=== PATIENT | male | born 1975 | race Caucasian/White ===

== ENCOUNTER 2022-11-03 15:45 | Inpatient (IN) | payer OTHER, BC ==
[2022-11-03 16:29] VITALS: BMI 26.6
[2022-11-03] MEDS ORDERED: DEXAMETHASONE SOD PHOSPHATE 4 MG/1 ML VIAL IVPUSH ONE (17:59)
[2022-11-03 19:10] LABS: HEMATOCRIT 41.7 % (35.4-49); HEMOGLOBIN 13.4 GM/dL (11.7-16.9); MCH 30.9 pg (25.7-33.7); MCHC 32.2 g/dl (32.0-35.9); MEAN CELL VOLUME 95.8 fl (80-96); PLATELET COUNT 295 10^3/uL (134-434); RBC 4.36 M/mm3 (4.00-5.60); RDW 13.4 % (11.9-15.9); WHITE BLOOD COUNT 3.7 K/mm3 (4.0-10.0)
[2022-11-03 19:30] LABS: BLOOD UREA NITROGEN 22.9 mg/dL (7-18); CALCIUM 8.5 mg/dL (8.5-10.1)
[2022-11-03 19:36] LABS: BILIRUBIN,TOTAL 0.4 mg/dL (0.2-1); TOT PROT 7.1 g/dl (6.4-8.2)
[2022-11-03] MEDS ORDERED: DEXAMETHASONE SOD PHOSPHATE 4 MG/1 ML VIAL ONE (20:34)
[2022-11-03 21:12] LABS: CALCIUM 8.7 mg/dL (8.5-10.1)
[2022-11-03 21:13] LABS: BLOOD UREA NITROGEN 21.4 mg/dL (7-18)
[2022-11-03 21:18] LABS: BILIRUBIN,TOTAL 0.3 mg/dL (0.2-1); TOT PROT 6.8 g/dl (6.4-8.2)
[2022-11-04] MEDS ORDERED: REMDESIVIR 200 MG in SODIUM CHLORIDE 250 ML IVPB ONE (02:30)
[2022-11-04 07:28] LABS: BASO % 0.9 % (0-2.0); EOS % 2.7 % (0-4.5); HEMATOCRIT 43.2 % (35.4-49); HEMOGLOBIN 14.3 GM/dL (11.7-16.9); LYMPH % 29.1 % (8-40); MCH 31.7 pg (25.7-33.7); MCHC 33.1 g/dl (32.0-35.9); MEAN CELL VOLUME 95.9 fl (80-96); MEAN PLT VOLUME 6.9 fl (7.5-11.1); MONO % 13.6 % (3.8-10.2); NEUT % 53.7 % (42.8-82.8); PLATELET COUNT 308 10^3/uL (134-434); RBC 4.51 M/mm3 (4.00-5.60); RDW 13.3 % (11.9-15.9); WHITE BLOOD COUNT 3.9 K/mm3 (4.0-10.0)
[2022-11-04 07:56] LABS: CALCIUM 8.8 mg/dL (8.5-10.1)
[2022-11-04 07:57] LABS: ALBUMIN 3.2 g/dl (3.4-5.0); BLOOD UREA NITROGEN 21.2 mg/dL (7-18); MAGNESIUM 2.1 mg/dL (1.8-2.4)
[2022-11-04 07:59] LABS: CREATININE 0.9 mg/dL (0.55-1.3); PHOSPHOROUS 4.1 mg/dL (2.5-4.9)
[2022-11-04 08:01] LABS: BILIRUBIN,TOTAL 0.4 mg/dL (0.2-1)
[2022-11-04] MEDS ORDERED: amLODIPine BESYLATE 5 MG TABLET (FP) ONE (08:44)
[2022-11-04] MEDS ORDERED: LOSARTAN POTASSIUM 50 MG TABLET ONE (08:45)
[2022-11-04] MEDS ORDERED: HYDROCHLOROTHIAZIDE 25 MG TABLET (FP) ONE (08:45)
[2022-11-04] MEDS ORDERED: ENOXAPARIN NA (PORCINE) 40 MG/0.4 ML DISP.SYRIN SQ ONE (10:46)
[2022-11-04] MEDS ORDERED: DEXAMETHASONE SOD PHOSPHATE 10 MG/1 ML VIAL ONE (10:46)
[2022-11-04] MEDS: ENOXAPARIN NA (PORCINE) 40 MG/0.4 ML DISP.SYRIN SQ SCH (11:00)
[2022-11-04] MEDS: DEXAMETHASONE SOD PHOSPHATE 10 MG/1 ML VIAL IVPUSH SCH (11:00)
[2022-11-04] MEDS ORDERED: ACETAMINOPHEN 325 MG TABLET (FP) PO PRN (14:25)
[2022-11-04] MEDS: DIVALPROEX NA *ER* EXTEND REL 250 MG TABLET.SA PO SCH (17:30)
[2022-11-04] MEDS: MIDODRINE HCL 2.5 MG TABLET PO SCH (17:58)
[2022-11-04] MEDS ORDERED: LORazepam 2 MG/ML SDV VIAL IVPUSH ONE (21:39)
[2022-11-04] MEDS ORDERED: LORazepam 2 MG/ML SDV VIAL IVPUSH PRN (21:45)
[2022-11-04] MEDS: cloBAZam 10 MG TABLET PO SCH (22:53)
[2022-11-04] MEDS: LOPERAMIDE HCL 2 MG CAPSULE PO SCH (22:53)
[2022-11-05] MEDS: MESALAMINE 800 MG TABLET.DR PO SCH ×3 (00:17→22:33)
[2022-11-05] MEDS: lamoTRIgine 100 MG TABLET PO SCH ×3 (00:17→22:33)
[2022-11-05] MEDS: REMDESIVIR 100 MG in SODIUM CHLORIDE 250 ML IVPB SCH (02:02)
[2022-11-05] MEDS: LOPERAMIDE HCL 2 MG CAPSULE PO SCH ×3 (05:28→22:34)
[2022-11-05] MEDS ORDERED: cloBAZam 10 MG TABLET PO SCH (10:00)
[2022-11-05 10:09] LABS: BASO % 0.8 % (0-2.0); EOS % 1.6 % (0-4.5); HEMATOCRIT 43.6 % (35.4-49); HEMOGLOBIN 14.4 GM/dL (11.7-16.9); LYMPH % 29.2 % (8-40); MCH 31.6 pg (25.7-33.7); MCHC 33.1 g/dl (32.0-35.9); MEAN CELL VOLUME 95.4 fl (80-96); MEAN PLT VOLUME 6.7 fl (7.5-11.1); NEUT % 55.4 % (42.8-82.8); PLATELET COUNT 313 10^3/uL (134-434); RBC 4.57 M/mm3 (4.00-5.60); RDW 13.5 % (11.9-15.9); WHITE BLOOD COUNT 5.1 K/mm3 (4.0-10.0)
[2022-11-05 10:28] LABS: BLOOD UREA NITROGEN 32.8 mg/dL (7-18); CALCIUM 9.1 mg/dL (8.5-10.1); MAGNESIUM 2.1 mg/dL (1.8-2.4)
[2022-11-05 10:31] LABS: BILIRUBIN,DIRECT 0.1 mg/dL (0.0-0.2); CREATININE 1.1 mg/dL (0.55-1.3)
[2022-11-05 10:33] LABS: BILIRUBIN,TOTAL 0.3 mg/dL (0.2-1)
[2022-11-05] MEDS: LORATADINE 10 MG TABLET PO SCH (11:27)
[2022-11-05] MEDS: ENOXAPARIN NA (PORCINE) 40 MG/0.4 ML DISP.SYRIN SQ SCH (11:27)
[2022-11-05] MEDS: MIDODRINE HCL 2.5 MG TABLET PO SCH ×3 (11:27→17:51)
[2022-11-05] MEDS: DEXAMETHASONE SOD PHOSPHATE 10 MG/1 ML VIAL IVPUSH SCH (11:28)
[2022-11-05] MEDS: ARIPiprazole 5 MG TABLET PO SCH (13:50)
[2022-11-05] MEDS: DIVALPROEX NA *ER* EXTEND REL 250 MG TABLET.SA PO SCH (13:51)
[2022-11-05] MEDS: cloBAZam 10 MG TABLET PO SCH (22:33)
[2022-11-05] MEDS: CENOBAMATE 150 MG PO SCH (23:54)
[2022-11-05] MEDS: BRIVARACETAM PO SCH (23:55)
[2022-11-06] MEDS: REMDESIVIR 100 MG in SODIUM CHLORIDE 250 ML IVPB SCH (02:34)
[2022-11-06] MEDS: LOPERAMIDE HCL 2 MG CAPSULE PO SCH ×3 (05:06→21:46)
[2022-11-06] MEDS: BRIVARACETAM PO SCH ×2 (09:59→21:45)
[2022-11-06] MEDS: MIDODRINE HCL 2.5 MG TABLET PO SCH ×3 (10:00→17:47)
[2022-11-06] MEDS: LORATADINE 10 MG TABLET PO SCH (10:00)
[2022-11-06] MEDS: DEXAMETHASONE SOD PHOSPHATE 10 MG/1 ML VIAL IVPUSH SCH (10:00)
[2022-11-06] MEDS: lamoTRIgine 100 MG TABLET PO SCH ×2 (10:01→21:47)
[2022-11-06] MEDS: ARIPiprazole 5 MG TABLET PO SCH (10:02)
[2022-11-06] MEDS: MESALAMINE 800 MG TABLET.DR PO SCH ×2 (10:02→21:47)
[2022-11-06] MEDS: ENOXAPARIN NA (PORCINE) 40 MG/0.4 ML DISP.SYRIN SQ SCH (10:02)
[2022-11-06 12:49] LABS: HEMATOCRIT 44.6 % (35.4-49); HEMOGLOBIN 14.9 GM/dL (11.7-16.9); MCH 31.8 pg (25.7-33.7); MCHC 33.3 g/dl (32.0-35.9); MEAN CELL VOLUME 95.4 fl (80-96); MEAN PLT VOLUME 6.9 fl (7.5-11.1); PLATELET COUNT 324 10^3/uL (134-434); RBC 4.68 M/mm3 (4.00-5.60); RDW 13.5 % (11.9-15.9); WHITE BLOOD COUNT 4.8 K/mm3 (4.0-10.0)
[2022-11-06 13:11] LABS: ALBUMIN 3.1 g/dl (3.4-5.0); BLOOD UREA NITROGEN 31.7 mg/dL (7-18); CALCIUM 8.6 mg/dL (8.5-10.1)
[2022-11-06 13:15] LABS: CREATININE 1.1 mg/dL (0.55-1.3)
[2022-11-06 13:16] LABS: BILIRUBIN,TOTAL 0.3 mg/dL (0.2-1)
[2022-11-06] MEDS ORDERED: DIVALPROEX NA *ER* EXTEND REL 250 MG TABLET.SA PO SCH (17:30)
[2022-11-06] MEDS: DIVALPROEX NA *ER* EXTEND REL 250 MG TABLET.SA PO SCH (18:02)
[2022-11-06] MEDS: DIVALPROEX 500 MG, DIVALPROEX 250 MG PO SCH (20:23)
[2022-11-06] MEDS: CENOBAMATE 150 MG PO SCH (21:44)
[2022-11-06] MEDS: cloBAZam 10 MG TABLET PO SCH (21:47)
[2022-11-07] MEDS: REMDESIVIR 100 MG in SODIUM CHLORIDE 250 ML IVPB SCH (02:48)
[2022-11-07] MEDS: LOPERAMIDE HCL 2 MG CAPSULE PO SCH ×3 (06:16→21:47)
[2022-11-07] MEDS: ENOXAPARIN NA (PORCINE) 40 MG/0.4 ML DISP.SYRIN SQ SCH (09:01)
[2022-11-07] MEDS: LORATADINE 10 MG TABLET PO SCH (09:02)
[2022-11-07] MEDS: lamoTRIgine 100 MG TABLET PO SCH ×2 (09:02→21:48)
[2022-11-07] MEDS: MESALAMINE 800 MG TABLET.DR PO SCH ×2 (09:02→21:49)
[2022-11-07] MEDS: ARIPiprazole 5 MG TABLET PO SCH (09:03)
[2022-11-07] MEDS: DEXAMETHASONE SOD PHOSPHATE 10 MG/1 ML VIAL IVPUSH SCH (09:04)
[2022-11-07] MEDS: DIVALPROEX 500 MG, DIVALPROEX 250 MG PO SCH ×2 (09:04→21:49)
[2022-11-07] MEDS: MIDODRINE HCL 2.5 MG TABLET PO SCH ×3 (09:11→17:19)
[2022-11-07] MEDS: BRIVARACETAM PO SCH ×2 (09:11→21:23)
[2022-11-07] MEDS: CENOBAMATE 150 MG PO SCH (21:48)
[2022-11-07] MEDS: cloBAZam 10 MG TABLET PO SCH (21:50)
[2022-11-08] MEDS: REMDESIVIR 100 MG in SODIUM CHLORIDE 250 ML IVPB SCH (03:47)
[2022-11-08] MEDS: LOPERAMIDE HCL 2 MG CAPSULE PO SCH ×3 (06:31→22:26)
[2022-11-08 11:31] LABS: BASO % 0.8 % (0-2.0); EOS % 1.6 % (0-4.5); HEMATOCRIT 45.2 % (35.4-49); LYMPH % 16.9 % (8-40); MCH 31.8 pg (25.7-33.7); MCHC 33.1 g/dl (32.0-35.9); MEAN CELL VOLUME 95.9 fl (80-96); MEAN PLT VOLUME 7.2 fl (7.5-11.1); MONO % 14.9 % (3.8-10.2); NEUT % 65.8 % (42.8-82.8); PLATELET COUNT 313 10^3/uL (134-434); RBC 4.71 M/mm3 (4.00-5.60); RDW 13.6 % (11.9-15.9); WHITE BLOOD COUNT 5.1 K/mm3 (4.0-10.0)
[2022-11-08 11:38] LABS: INR 0.99 (0.83-1.09); PROTHROMBIN TIME (PATIENT) 11.4 SEC (9.7-13.0)
[2022-11-08] MEDS: LORATADINE 10 MG TABLET PO SCH (11:54)
[2022-11-08] MEDS: ENOXAPARIN NA (PORCINE) 40 MG/0.4 ML DISP.SYRIN SQ SCH (11:54)
[2022-11-08] MEDS: MIDODRINE HCL 2.5 MG TABLET PO SCH ×3 (11:54→18:47)
[2022-11-08] MEDS: DIVALPROEX 500 MG, DIVALPROEX 250 MG PO SCH ×2 (11:55→22:25)
[2022-11-08] MEDS: MESALAMINE 800 MG TABLET.DR PO SCH ×2 (11:55→22:26)
[2022-11-08] MEDS: lamoTRIgine 100 MG TABLET PO SCH ×2 (11:56→22:25)
[2022-11-08] MEDS: ARIPiprazole 5 MG TABLET PO SCH (12:00)
[2022-11-08] MEDS: BRIVARACETAM PO SCH ×2 (12:00→22:25)
[2022-11-08 12:20] LABS: CALCIUM 8.8 mg/dL (8.5-10.1)
[2022-11-08 12:21] LABS: ALBUMIN 3.2 g/dl (3.4-5.0); MAGNESIUM 1.9 mg/dL (1.8-2.4)
[2022-11-08 12:24] LABS: PHOSPHOROUS 3.1 mg/dL (2.5-4.9)
[2022-11-08 12:25] LABS: TOT PROT 7.2 g/dl (6.4-8.2)
[2022-11-08 12:26] LABS: BILIRUBIN,TOTAL 0.4 mg/dL (0.2-1)
[2022-11-08] MEDS: DEXAMETHASONE SOD PHOSPHATE 10 MG/1 ML VIAL IVPUSH SCH (12:26)
[2022-11-08] MEDS: CENOBAMATE 150 MG PO SCH (22:25)
[2022-11-08] MEDS: cloBAZam 10 MG TABLET PO SCH (22:26)
[2022-11-09] MEDS: LOPERAMIDE HCL 2 MG CAPSULE PO SCH ×3 (05:47→21:31)
[2022-11-09 10:14] LABS: BASO % 0.5 % (0-2.0); HEMATOCRIT 45.5 % (35.4-49); HEMOGLOBIN 15.2 GM/dL (11.7-16.9); MCH 32.2 pg (25.7-33.7); MCHC 33.4 g/dl (32.0-35.9); MEAN CELL VOLUME 96.3 fl (80-96); MEAN PLT VOLUME 7.3 fl (7.5-11.1); MONO % 15.9 % (3.8-10.2); NEUT % 54.6 % (42.8-82.8); PLATELET COUNT 299 10^3/uL (134-434); RBC 4.72 M/mm3 (4.00-5.60); RDW 13.8 % (11.9-15.9); WHITE BLOOD COUNT 3.7 K/mm3 (4.0-10.0)
[2022-11-09] MEDS: lamoTRIgine 100 MG TABLET PO SCH ×2 (10:25→21:31)
[2022-11-09] MEDS: MESALAMINE 800 MG TABLET.DR PO SCH ×2 (10:25→21:31)
[2022-11-09] MEDS: ARIPiprazole 5 MG TABLET PO SCH (10:25)
[2022-11-09] MEDS: DIVALPROEX 500 MG, DIVALPROEX 250 MG PO SCH ×2 (10:26→21:31)
[2022-11-09] MEDS: LORATADINE 10 MG TABLET PO SCH (10:26)
[2022-11-09] MEDS: MIDODRINE HCL 2.5 MG TABLET PO SCH ×3 (10:26→17:54)
[2022-11-09] MEDS: ENOXAPARIN NA (PORCINE) 40 MG/0.4 ML DISP.SYRIN SQ SCH (10:27)
[2022-11-09 10:49] LABS: CALCIUM 8.9 mg/dL (8.5-10.1)
[2022-11-09 10:51] LABS: ALBUMIN 3.4 g/dl (3.4-5.0); BLOOD UREA NITROGEN 30.8 mg/dL (7-18)
[2022-11-09 10:53] LABS: CREATININE 1.1 mg/dL (0.55-1.3); PHOSPHOROUS 3.2 mg/dL (2.5-4.9)
[2022-11-09 10:54] LABS: TOT PROT 7.4 g/dl (6.4-8.2)
[2022-11-09 10:55] LABS: BILIRUBIN,TOTAL 0.4 mg/dL (0.2-1)
[2022-11-09] MEDS: BRIVARACETAM PO SCH ×2 (13:34→22:04)
[2022-11-09] MEDS: cloBAZam 10 MG TABLET PO SCH (21:31)
[2022-11-09] MEDS: CENOBAMATE 150 MG PO SCH (22:04)
[2022-11-10] MEDS: LOPERAMIDE HCL 2 MG CAPSULE PO SCH ×3 (05:16→23:05)
[2022-11-10] MEDS: LORATADINE 10 MG TABLET PO SCH (10:10)
[2022-11-10] MEDS: ENOXAPARIN NA (PORCINE) 40 MG/0.4 ML DISP.SYRIN SQ SCH (10:10)
[2022-11-10] MEDS: MIDODRINE HCL 2.5 MG TABLET PO SCH ×3 (10:10→18:13)
[2022-11-10] MEDS: MESALAMINE 800 MG TABLET.DR PO SCH ×2 (10:11→23:05)
[2022-11-10] MEDS: lamoTRIgine 100 MG TABLET PO SCH ×2 (10:11→23:05)
[2022-11-10] MEDS: ARIPiprazole 5 MG TABLET PO SCH (10:11)
[2022-11-10 10:12] LABS: BASO % 0.4 % (0-2.0); EOS % 0.6 % (0-4.5); HEMATOCRIT 48.1 % (35.4-49); HEMOGLOBIN 16.1 GM/dL (11.7-16.9); LYMPH % 18.1 % (8-40); MCHC 33.4 g/dl (32.0-35.9); MEAN CELL VOLUME 95.8 fl (80-96); MEAN PLT VOLUME 7.4 fl (7.5-11.1); MONO % 12.9 % (3.8-10.2); PLATELET COUNT 311 10^3/uL (134-434); RBC 5.03 M/mm3 (4.00-5.60); RDW 13.8 % (11.9-15.9); WHITE BLOOD COUNT 5.3 K/mm3 (4.0-10.0)
[2022-11-10] MEDS: DIVALPROEX 500 MG, DIVALPROEX 250 MG PO SCH ×2 (10:12→23:05)
[2022-11-10] MEDS: BRIVARACETAM PO SCH (10:13)
[2022-11-10 11:22] LABS: MAGNESIUM 2.1 mg/dL (1.8-2.4)
[2022-11-10 11:23] LABS: CALCIUM 9.1 mg/dL (8.5-10.1)
[2022-11-10 11:24] LABS: ALBUMIN 3.5 g/dl (3.4-5.0); BLOOD UREA NITROGEN 39.3 mg/dL (7-18)
[2022-11-10 11:26] LABS: CREATININE 1.2 mg/dL (0.55-1.3); PHOSPHOROUS 3.3 mg/dL (2.5-4.9)
[2022-11-10 11:27] LABS: BILIRUBIN,TOTAL 0.8 mg/dL (0.2-1); TOT PROT 7.9 g/dl (6.4-8.2)
[2022-11-10] MEDS: DEXAMETHASONE SOD PHOSPHATE 10 MG/1 ML VIAL IVPUSH SCH (12:51)
[2022-11-10] MEDS: BUDESONIDE/FORMETEROL FUMARATE 80/4.5 mcg INHALER IH SCH ×2 (18:14→23:07)
[2022-11-10] MEDS: cloBAZam 10 MG TABLET PO SCH (23:14)
[2022-11-11] MEDS: CENOBAMATE 150 MG PO SCH ×2 (01:30→23:12)
[2022-11-11] MEDS: BRIVARACETAM PO SCH ×3 (01:32→23:12)
[2022-11-11] MEDS: LOPERAMIDE HCL 2 MG CAPSULE PO SCH ×3 (05:37→23:07)
[2022-11-11] MEDS: lamoTRIgine 100 MG TABLET PO SCH ×2 (09:48→23:07)
[2022-11-11] MEDS: MESALAMINE 800 MG TABLET.DR PO SCH ×2 (09:48→23:05)
[2022-11-11] MEDS: ARIPiprazole 5 MG TABLET PO SCH (09:48)
[2022-11-11] MEDS: DIVALPROEX 500 MG, DIVALPROEX 250 MG PO SCH ×2 (09:48→23:06)
[2022-11-11] MEDS: ENOXAPARIN NA (PORCINE) 40 MG/0.4 ML DISP.SYRIN SQ SCH (09:49)
[2022-11-11] MEDS: MIDODRINE HCL 2.5 MG TABLET PO SCH ×3 (09:49→17:17)
[2022-11-11] MEDS: LORATADINE 10 MG TABLET PO SCH (09:49)
[2022-11-11] MEDS: BUDESONIDE/FORMETEROL FUMARATE 80/4.5 mcg INHALER IH SCH ×2 (09:50→23:08)
[2022-11-11] MEDS: DEXAMETHASONE SOD PHOSPHATE 10 MG/1 ML VIAL IVPUSH SCH (09:50)
[2022-11-11 12:17] LABS: BASO % 0.4 % (0-2.0); EOS % 1.4 % (0-4.5); HEMATOCRIT 48.7 % (35.4-49); HEMOGLOBIN 16.5 GM/dL (11.7-16.9); LYMPH % 17.8 % (8-40); MCH 32.6 pg (25.7-33.7); MCHC 33.9 g/dl (32.0-35.9); MEAN PLT VOLUME 7.3 fl (7.5-11.1); MONO % 19.5 % (3.8-10.2); NEUT % 60.9 % (42.8-82.8); PLATELET COUNT 326 10^3/uL (134-434); RBC 5.07 M/mm3 (4.00-5.60); RDW 13.9 % (11.9-15.9); WHITE BLOOD COUNT 5.7 K/mm3 (4.0-10.0)
[2022-11-11 12:49] LABS: BLOOD UREA NITROGEN 57.5 mg/dL (7-18); CALCIUM 9.2 mg/dL (8.5-10.1)
[2022-11-11 12:50] LABS: ALBUMIN 3.8 g/dl (3.4-5.0); MAGNESIUM 2.5 mg/dL (1.8-2.4)
[2022-11-11 12:51] LABS: PHOSPHOROUS 4.2 mg/dL (2.5-4.9)
[2022-11-11 12:52] LABS: CREATININE 1.6 mg/dL (0.55-1.3)
[2022-11-11 12:53] LABS: BILIRUBIN,TOTAL 0.8 mg/dL (0.2-1)
[2022-11-11 12:57] LABS: TOT PROT 8.6 g/dl (6.4-8.2)
[2022-11-11 18:34] LABS: ALLENS TEST POSITIVE; ARTERIAL BLD GAS O2 SATURATION 98.4 % (95-98); ARTERIAL BLOOD GAS BASE EXCESS -5.5 mmol/L (-2-2); ARTERIAL BLOOD GAS PO2 132.3 mmHg (80-100); ARTERIAL BLOOD GAS pH 7.313 (7.350-7.450)
[2022-11-11] MEDS: cloBAZam 10 MG TABLET PO SCH (23:08)
[2022-11-12] MEDS: LOPERAMIDE HCL 2 MG CAPSULE PO SCH (05:05)
[2022-11-12] MEDS ORDERED: LOPERAMIDE HCL 2 MG CAPSULE PO PRN (09:21)
[2022-11-12] MEDS ORDERED: DEXTROSE 5%-0.45% SALINE 1,000 ML IV SCH (09:30)
[2022-11-12] MEDS: BUDESONIDE/FORMETEROL FUMARATE 80/4.5 mcg INHALER IH SCH ×2 (11:26→22:37)
[2022-11-12] MEDS: AZITHROMYCIN IVPB 500 MG/250 ML BAG IVPB SCH (11:26)
[2022-11-12] MEDS: DEXAMETHASONE SOD PHOSPHATE 10 MG/1 ML VIAL IVPUSH SCH (11:27)
[2022-11-12] MEDS: MIDODRINE HCL 2.5 MG TABLET PO SCH ×3 (11:27→18:47)
[2022-11-12] MEDS: MESALAMINE 800 MG TABLET.DR PO SCH ×2 (11:29→22:37)
[2022-11-12] MEDS: DIVALPROEX SODIUM 500 MG TABLET E.C. PO SCH (11:29)
[2022-11-12] MEDS: lamoTRIgine 100 MG TABLET PO SCH ×2 (11:29→22:36)
[2022-11-12] MEDS: BRIVARACETAM PO SCH ×2 (11:31→22:37)
[2022-11-12] MEDS: ENOXAPARIN NA (PORCINE) 40 MG/0.4 ML DISP.SYRIN SQ SCH (11:32)
[2022-11-12 11:33] LABS: HEMATOCRIT 51.6 % (35.4-49); HEMOGLOBIN 17.4 GM/dL (11.7-16.9); MCH 32.1 pg (25.7-33.7); MCHC 33.7 g/dl (32.0-35.9); MEAN CELL VOLUME 95.5 fl (80-96); MEAN PLT VOLUME 8.1 fl (7.5-11.1); PLATELET COUNT 343 10^3/uL (134-434); RBC 5.41 M/mm3 (4.00-5.60); RDW 13.6 % (11.9-15.9); WHITE BLOOD COUNT 5.8 K/mm3 (4.0-10.0)
[2022-11-12 11:59] LABS: CHLORIDE 103 mmol/L (98-107); SODIUM 133 mmol/L (136-145)
[2022-11-12 12:03] LABS: BLOOD UREA NITROGEN 69.2 mg/dL (7-18); CALCIUM 9.3 mg/dL (8.5-10.1); CO2 19 mmol/L (21-32); GLUCOSE,RANDOM 101 mg/dL (74-106); MAGNESIUM 2.7 mg/dL (1.8-2.4)
[2022-11-12 12:06] LABS: CREATININE 1.8 mg/dL (0.55-1.3); PHOSPHOROUS 4.1 mg/dL (2.5-4.9); SGOT/AST 50 U/L (15-37); SGPT/ALT 89 U/L (13-61)
[2022-11-12 12:07] LABS: ALK PHOS 137 U/L (45-117)
[2022-11-12 12:08] LABS: ANION GAP 11 MMOL/L (8-16); BILIRUBIN,TOTAL 1.3 mg/dL (0.2-1)
[2022-11-12 13:33] LABS: ANISOCYTOSIS 0; MACROCYTOSIS 0
[2022-11-12] MEDS ORDERED: INSULIN REGULAR HUMAN 100 UNITS/ML *VIAL IVPUSH ONE (15:00)
[2022-11-12] MEDS ORDERED: DEXTROSE 50%-WATER 25 GM/50 ML DISP.SYRIN IVPUSH ONE (15:00)
[2022-11-12] MEDS ORDERED: CALCIUM GLUCONATE 10% - 1,000 MG/10 ML VIAL IVPB ONE (15:00)
[2022-11-12] MEDS: SODIUM ZIRCONIUM CYCLOSILICATE (LOKELMA) 5 GM PACKET PO SCH ×2 (15:35→22:36)
[2022-11-12] MEDS: ARIPiprazole 5 MG TABLET PO SCH (15:37)
[2022-11-12 20:54] LABS: CALCIUM 9.5 mg/dL (8.5-10.1)
[2022-11-12 20:55] LABS: BLOOD UREA NITROGEN 66.3 mg/dL (7-18)
[2022-11-12 20:58] LABS: CREATININE 1.6 mg/dL (0.55-1.3)
[2022-11-12] MEDS: SODIUM CHLORIDE 1,000 ML IV SCH (22:35)
[2022-11-12] MEDS: cloBAZam 10 MG TABLET PO SCH (22:36)
[2022-11-12] MEDS: DIVALPROEX 500 MG, DIVALPROEX 250 MG PO SCH (22:36)
[2022-11-12] MEDS: CENOBAMATE 150 MG PO SCH (22:37)
[2022-11-13] MEDS: SODIUM CHLORIDE 1,000 ML IV SCH ×2 (05:03→23:56)
[2022-11-13] MEDS: AZITHROMYCIN IVPB 500 MG/250 ML BAG IVPB SCH (11:34)
[2022-11-13] MEDS: SODIUM ZIRCONIUM CYCLOSILICATE (LOKELMA) 5 GM PACKET PO SCH (11:34)
[2022-11-13] MEDS: DIVALPROEX SODIUM 500 MG TABLET E.C. PO SCH (11:36)
[2022-11-13] MEDS: ARIPiprazole 5 MG TABLET PO SCH (11:37)
[2022-11-13] MEDS: MESALAMINE 800 MG TABLET.DR PO SCH ×2 (11:37→23:53)
[2022-11-13] MEDS: BRIVARACETAM PO SCH ×2 (11:38→23:56)
[2022-11-13] MEDS: DEXAMETHASONE SOD PHOSPHATE 10 MG/1 ML VIAL IVPUSH SCH (11:42)
[2022-11-13] MEDS: ENOXAPARIN NA (PORCINE) 40 MG/0.4 ML DISP.SYRIN SQ SCH (11:45)
[2022-11-13] MEDS: lamoTRIgine 100 MG TABLET PO SCH ×2 (11:45→23:53)
[2022-11-13] MEDS: MIDODRINE HCL 2.5 MG TABLET PO SCH ×3 (11:46→18:17)
[2022-11-13] MEDS: BUDESONIDE/FORMETEROL FUMARATE 80/4.5 mcg INHALER IH SCH ×2 (11:47→23:59)
[2022-11-13] MEDS: SODIUM CHLORIDE 1 GM TABLET PO SCH ×2 (11:47→23:53)
[2022-11-13 11:57] LABS: HEMATOCRIT 46.2 % (35.4-49); HEMOGLOBIN 15.8 GM/dL (11.7-16.9); MCH 32.6 pg (25.7-33.7); MCHC 34.2 g/dl (32.0-35.9); MEAN CELL VOLUME 95.3 fl (80-96); MEAN PLT VOLUME 7.8 fl (7.5-11.1); PLATELET COUNT 300 10^3/uL (134-434); RBC 4.84 M/mm3 (4.00-5.60); RDW 13.5 % (11.9-15.9); WHITE BLOOD COUNT 5.6 K/mm3 (4.0-10.0)
[2022-11-13 12:01] LABS: BLOOD UREA NITROGEN 57.9 mg/dL (7-18); CALCIUM 8.9 mg/dL (8.5-10.1)
[2022-11-13 12:02] LABS: ALBUMIN 3.2 g/dl (3.4-5.0); MAGNESIUM 2.4 mg/dL (1.8-2.4)
[2022-11-13 12:04] LABS: CREATININE 1.3 mg/dL (0.55-1.3)
[2022-11-13 12:05] LABS: TOT PROT 7.7 g/dl (6.4-8.2)
[2022-11-13 13:28] LABS: ANISOCYTOSIS 0; MACROCYTOSIS 0
[2022-11-13] MEDS: CENOBAMATE 150 MG PO SCH (22:30)
[2022-11-13] MEDS: cloBAZam 10 MG TABLET PO SCH (23:53)
[2022-11-13] MEDS: DIVALPROEX 500 MG, DIVALPROEX 250 MG PO SCH (23:53)
[2022-11-14] MEDS ORDERED: SODIUM ZIRCONIUM CYCLOSILICATE (LOKELMA) 5 GM PACKET PO SCH (10:00)
[2022-11-14 10:45] LABS: HEMATOCRIT 45.3 % (35.4-49); HEMOGLOBIN 15.5 GM/dL (11.7-16.9); MCH 32.4 pg (25.7-33.7); MCHC 34.1 g/dl (32.0-35.9); PLATELET COUNT 302 10^3/uL (134-434); RBC 4.77 M/mm3 (4.00-5.60); RDW 13.8 % (11.9-15.9); WHITE BLOOD COUNT 5.7 K/mm3 (4.0-10.0)
[2022-11-14 10:53] LABS: ALBUMIN 3.2 g/dl (3.4-5.0)
[2022-11-14 10:54] LABS: BLOOD UREA NITROGEN 47.1 mg/dL (7-18)
[2022-11-14 10:56] LABS: CREATININE 1.2 mg/dL (0.55-1.3)
[2022-11-14 10:58] LABS: BILIRUBIN,TOTAL 0.6 mg/dL (0.2-1); TOT PROT 7.8 g/dl (6.4-8.2)
[2022-11-14] MEDS ORDERED: MELATONIN 5 MG TABLETS PO PRN (11:48)
[2022-11-14] MEDS: AZITHROMYCIN IVPB 500 MG/250 ML BAG IVPB SCH (12:20)
[2022-11-14] MEDS: SODIUM ZIRCONIUM CYCLOSILICATE (LOKELMA) 5 GM PACKET PO SCH (12:26)
[2022-11-14] MEDS: BUDESONIDE/FORMETEROL FUMARATE 80/4.5 mcg INHALER IH SCH ×2 (12:26→23:03)
[2022-11-14] MEDS: DIVALPROEX SODIUM 500 MG TABLET E.C. PO SCH (12:27)
[2022-11-14] MEDS: SODIUM CHLORIDE 1 GM TABLET PO SCH (12:27)
[2022-11-14] MEDS: MIDODRINE HCL 2.5 MG TABLET PO SCH ×3 (12:27→18:28)
[2022-11-14] MEDS: DEXAMETHASONE SOD PHOSPHATE 10 MG/1 ML VIAL IVPUSH SCH (12:28)
[2022-11-14] MEDS: ENOXAPARIN NA (PORCINE) 40 MG/0.4 ML DISP.SYRIN SQ SCH (12:28)
[2022-11-14] MEDS: lamoTRIgine 100 MG TABLET PO SCH ×2 (12:28→23:02)
[2022-11-14] MEDS: MESALAMINE 800 MG TABLET.DR PO SCH ×2 (12:30→23:02)
[2022-11-14] MEDS: BRIVARACETAM PO SCH ×2 (12:30→23:03)
[2022-11-14] MEDS: ARIPiprazole 5 MG TABLET PO SCH (12:31)
[2022-11-14 12:40] LABS: ANISOCYTOSIS 0; MACROCYTOSIS 0
[2022-11-14 19:57] LABS: EPI CELLS 3 /uL (0-25.1); HYALINE CASTS 1 /uL (0-3.1); URINE APPEARANCE CLEAR; URINE BACTERIA 40 /uL (0-1359); URINE BILIRUBIN NEGATIVE (NEGATIVE); URINE COLOR YELLOW; URINE GLUCOSE (UA) NEGATIVE (NEGATIVE); URINE KETONE NEGATIVE (NEGATIVE); URINE LEUK ESTERASE NEGATIVE (NEGATIVE); URINE NITRITE NEGATIVE (NEGATIVE); URINE PROTEIN 1+ (NEGATIVE); URINE RBC 83 /uL (0-23.9); URINE UROBILINOGEN 0.2 mg/dL (0.2-1.0); URINE WBC 8 /uL (0-25.8)
[2022-11-14] MEDS: DIVALPROEX 500 MG, DIVALPROEX 250 MG PO SCH (23:02)
[2022-11-14] MEDS: CENOBAMATE 150 MG PO SCH (23:03)
[2022-11-14] MEDS: cloBAZam 10 MG TABLET PO SCH (23:03)
[2022-11-15] MEDS: lamoTRIgine 100 MG TABLET PO SCH ×2 (09:27→23:49)
[2022-11-15] MEDS: DIVALPROEX SODIUM 500 MG TABLET E.C. PO SCH (09:28)
[2022-11-15] MEDS: DEXAMETHASONE SOD PHOSPHATE 10 MG/1 ML VIAL IVPUSH SCH (09:29)
[2022-11-15] MEDS: SODIUM ZIRCONIUM CYCLOSILICATE (LOKELMA) 5 GM PACKET PO SCH (09:30)
[2022-11-15] MEDS: ENOXAPARIN NA (PORCINE) 40 MG/0.4 ML DISP.SYRIN SQ SCH (09:33)
[2022-11-15] MEDS: MIDODRINE HCL 2.5 MG TABLET PO SCH ×3 (09:34→18:04)
[2022-11-15] MEDS: MESALAMINE 800 MG TABLET.DR PO SCH ×2 (09:36→23:49)
[2022-11-15] MEDS: ARIPiprazole 5 MG TABLET PO SCH (09:40)
[2022-11-15] MEDS: BUDESONIDE/FORMETEROL FUMARATE 80/4.5 mcg INHALER IH SCH ×2 (10:00→23:51)
[2022-11-15 10:42] LABS: HEMATOCRIT 44.9 % (35.4-49); HEMOGLOBIN 15.5 GM/dL (11.7-16.9); MCH 32.8 pg (25.7-33.7); MCHC 34.4 g/dl (32.0-35.9); MEAN CELL VOLUME 95.4 fl (80-96); MEAN PLT VOLUME 7.6 fl (7.5-11.1); PLATELET COUNT 319 10^3/uL (134-434); RBC 4.71 M/mm3 (4.00-5.60); RDW 13.3 % (11.9-15.9); WHITE BLOOD COUNT 4.8 K/mm3 (4.0-10.0)
[2022-11-15 11:10] LABS: ALBUMIN 3.4 g/dl (3.4-5.0); MAGNESIUM 2.5 mg/dL (1.8-2.4)
[2022-11-15] MEDS: BRIVARACETAM PO SCH ×2 (11:10→23:47)
[2022-11-15 11:11] LABS: BLOOD UREA NITROGEN 53.4 mg/dL (7-18)
[2022-11-15 11:13] LABS: CREATININE 1.3 mg/dL (0.55-1.3); PHOSPHOROUS 3.1 mg/dL (2.5-4.9)
[2022-11-15 11:15] LABS: BILIRUBIN,TOTAL 0.7 mg/dL (0.2-1); TOT PROT 7.8 g/dl (6.4-8.2)
[2022-11-15] MEDS: SODIUM CHLORIDE 0.45% 1,000 ML IV SCH (16:13)
[2022-11-15 17:06] VITALS: RESP 18
[2022-11-15] MEDS: cloBAZam 10 MG TABLET PO SCH (23:49)
[2022-11-15] MEDS: DIVALPROEX 500 MG, DIVALPROEX 250 MG PO SCH (23:50)
[2022-11-15] MEDS: CENOBAMATE 150 MG PO SCH (23:50)
[2022-11-16] MEDS: SODIUM CHLORIDE 0.45% 1,000 ML IV SCH ×2 (00:06→17:12)
[2022-11-16] MEDS: MESALAMINE 800 MG TABLET.DR PO SCH ×2 (09:04→23:13)
[2022-11-16] MEDS: ARIPiprazole 5 MG TABLET PO SCH (09:04)
[2022-11-16] MEDS: BRIVARACETAM PO SCH ×2 (09:05→23:14)
[2022-11-16] MEDS: lamoTRIgine 100 MG TABLET PO SCH ×2 (09:07→23:13)
[2022-11-16] MEDS: DIVALPROEX SODIUM 500 MG TABLET E.C. PO SCH (09:08)
[2022-11-16] MEDS: MIDODRINE HCL 2.5 MG TABLET PO SCH ×3 (09:10→17:12)
[2022-11-16] MEDS: SODIUM ZIRCONIUM CYCLOSILICATE (LOKELMA) 5 GM PACKET PO SCH (09:10)
[2022-11-16] MEDS: ENOXAPARIN NA (PORCINE) 40 MG/0.4 ML DISP.SYRIN SQ SCH (09:10)
[2022-11-16] MEDS: BUDESONIDE/FORMETEROL FUMARATE 80/4.5 mcg INHALER IH SCH ×2 (09:11→22:03)
[2022-11-16] MEDS: DEXAMETHASONE SOD PHOSPHATE 10 MG/1 ML VIAL IVPUSH SCH (09:12)
[2022-11-16 10:25] LABS: HEMATOCRIT 43.3 % (35.4-49); HEMOGLOBIN 14.5 GM/dL (11.7-16.9); MCH 32.2 pg (25.7-33.7); MCHC 33.5 g/dl (32.0-35.9); MEAN PLT VOLUME 7.5 fl (7.5-11.1); PLATELET COUNT 293 10^3/uL (134-434); RBC 4.51 M/mm3 (4.00-5.60); RDW 13.9 % (11.9-15.9)
[2022-11-16 10:34] LABS: CALCIUM 8.7 mg/dL (8.5-10.1); MAGNESIUM 2.3 mg/dL (1.8-2.4)
[2022-11-16 10:35] LABS: BLOOD UREA NITROGEN 47.1 mg/dL (7-18)
[2022-11-16 10:39] LABS: BILIRUBIN,TOTAL 0.6 mg/dL (0.2-1); CREATININE 1.1 mg/dL (0.55-1.3); PHOSPHOROUS 2.7 mg/dL (2.5-4.9); TOT PROT 7.2 g/dl (6.4-8.2)
[2022-11-16 11:38] LABS: ANISOCYTOSIS 0; HELMET CELLS 0; HOWELL-JOLLY BODIES 0; MACROCYTOSIS 0; OVALOCYTE 0; ROULEAU 0; SICKELED CELLS 0; TARGET CELLS 0; TEAR DROP CELLS 0; TOXIC GRANULATION 0
[2022-11-16] MEDS: DIVALPROEX 500 MG, DIVALPROEX 250 MG PO SCH (22:01)
[2022-11-16] MEDS: cloBAZam 10 MG TABLET PO SCH (22:02)
[2022-11-16] MEDS: CENOBAMATE 150 MG PO SCH (23:14)
[2022-11-17] MEDS: CENOBAMATE 150 MG PO SCH ×2 (00:04→22:21)
[2022-11-17] MEDS: SODIUM CHLORIDE 0.45% 1,000 ML IV SCH ×3 (05:02→23:05)
[2022-11-17 10:33] LABS: BASO % 1.2 % (0-2.0); EOS % 2.5 % (0-4.5); HEMATOCRIT 38.3 % (35.4-49); LYMPH % 28.9 % (8-40); MCH 32.4 pg (25.7-33.7); MEAN CELL VOLUME 95.3 fl (80-96); MEAN PLT VOLUME 7.7 fl (7.5-11.1); MONO % 7.3 % (3.8-10.2); NEUT % 60.1 % (42.8-82.8); PLATELET COUNT 281 10^3/uL (134-434); RBC 4.01 M/mm3 (4.00-5.60); RDW 13.6 % (11.9-15.9); WHITE BLOOD COUNT 4.1 K/mm3 (4.0-10.0)
[2022-11-17] MEDS: MIDODRINE HCL 2.5 MG TABLET PO SCH ×4 (10:59→17:13)
[2022-11-17] MEDS: DEXAMETHASONE SOD PHOSPHATE 10 MG/1 ML VIAL IVPUSH SCH (10:59)
[2022-11-17] MEDS: DIVALPROEX SODIUM 500 MG TABLET E.C. PO SCH (11:01)
[2022-11-17] MEDS: ENOXAPARIN NA (PORCINE) 40 MG/0.4 ML DISP.SYRIN SQ SCH (11:02)
[2022-11-17] MEDS: ARIPiprazole 5 MG TABLET PO SCH (11:02)
[2022-11-17] MEDS: BRIVARACETAM PO SCH ×2 (11:02→22:32)
[2022-11-17] MEDS: MESALAMINE 800 MG TABLET.DR PO SCH ×2 (11:02→22:19)
[2022-11-17] MEDS: lamoTRIgine 100 MG TABLET PO SCH ×2 (11:03→22:20)
[2022-11-17] MEDS: BUDESONIDE/FORMETEROL FUMARATE 80/4.5 mcg INHALER IH SCH ×2 (11:03→22:21)
[2022-11-17 11:10] LABS: CALCIUM 8.3 mg/dL (8.5-10.1)
[2022-11-17 11:11] LABS: ALBUMIN 2.7 g/dl (3.4-5.0); BLOOD UREA NITROGEN 35.6 mg/dL (7-18); MAGNESIUM 2.1 mg/dL (1.8-2.4)
[2022-11-17 11:14] LABS: CREATININE 0.9 mg/dL (0.55-1.3)
[2022-11-17 11:15] LABS: BILIRUBIN,TOTAL 0.4 mg/dL (0.2-1); TOT PROT 6.5 g/dl (6.4-8.2)
[2022-11-17] MEDS: NAPH,MB-DB/K PH,MBDB POWDER PACKET PO SCH ×2 (13:38→22:20)
[2022-11-17] MEDS: DIVALPROEX 500 MG, DIVALPROEX 250 MG PO SCH (22:20)
[2022-11-17] MEDS: cloBAZam 10 MG TABLET PO SCH (22:20)
[2022-11-18] MEDS ORDERED: predniSONE 10 MG TABLET (UD) PO SCH ×2 (10:00→19:14)
[2022-11-18] MEDS: DIVALPROEX SODIUM 500 MG TABLET E.C. PO SCH (11:09)
[2022-11-18] MEDS: ENOXAPARIN NA (PORCINE) 40 MG/0.4 ML DISP.SYRIN SQ SCH (11:09)
[2022-11-18] MEDS: NAPH,MB-DB/K PH,MBDB POWDER PACKET PO SCH ×2 (11:09→22:02)
[2022-11-18] MEDS: MIDODRINE HCL 2.5 MG TABLET PO SCH ×3 (11:09→18:47)
[2022-11-18] MEDS: lamoTRIgine 100 MG TABLET PO SCH ×2 (11:10→22:02)
[2022-11-18] MEDS: MESALAMINE 800 MG TABLET.DR PO SCH ×2 (11:10→22:02)
[2022-11-18] MEDS: ARIPiprazole 5 MG TABLET PO SCH (11:10)
[2022-11-18] MEDS: BRIVARACETAM PO SCH ×2 (11:11→22:03)
[2022-11-18] MEDS: BUDESONIDE/FORMETEROL FUMARATE 80/4.5 mcg INHALER IH SCH ×2 (11:11→22:11)
[2022-11-18 11:33] LABS: ALBUMIN 2.8 g/dl (3.4-5.0); BLOOD UREA NITROGEN 25.6 mg/dL (7-18); CALCIUM 8.2 mg/dL (8.5-10.1); MAGNESIUM 1.9 mg/dL (1.8-2.4)
[2022-11-18 11:34] LABS: CREATININE 0.8 mg/dL (0.55-1.3)
[2022-11-18 11:36] LABS: BILIRUBIN,TOTAL 0.4 mg/dL (0.2-1); PHOSPHOROUS 2.4 mg/dL (2.5-4.9); TOT PROT 6.5 g/dl (6.4-8.2)
[2022-11-18] MEDS: SODIUM CHLORIDE 0.45% 1,000 ML IV SCH (19:00)
[2022-11-18] MEDS: DIVALPROEX 500 MG, DIVALPROEX 250 MG PO SCH (22:02)
[2022-11-18] MEDS: CENOBAMATE 150 MG PO SCH (22:09)
[2022-11-18] MEDS: cloBAZam 10 MG TABLET PO SCH (22:10)
[2022-11-19] MEDS: ENOXAPARIN NA (PORCINE) 40 MG/0.4 ML DISP.SYRIN SQ SCH (09:48)
[2022-11-19] MEDS: DIVALPROEX SODIUM 500 MG TABLET E.C. PO SCH (09:48)
[2022-11-19] MEDS: MIDODRINE HCL 2.5 MG TABLET PO SCH (09:48)
[2022-11-19] MEDS: MESALAMINE 800 MG TABLET.DR PO SCH (09:49)
[2022-11-19] MEDS: ARIPiprazole 5 MG TABLET PO SCH (09:49)
[2022-11-19] MEDS: lamoTRIgine 100 MG TABLET PO SCH (09:49)
[2022-11-19] MEDS: BRIVARACETAM PO SCH (09:50)
[2022-11-19] MEDS: BUDESONIDE/FORMETEROL FUMARATE 80/4.5 mcg INHALER IH SCH (09:50)
[2022-11-19 11:50] LABS: BASO % 1.1 % (0-2.0); EOS % 2.7 % (0-4.5); HEMATOCRIT 38.5 % (35.4-49); LYMPH % 32.7 % (8-40); MCH 32.4 pg (25.7-33.7); MCHC 33.7 g/dl (32.0-35.9); MEAN PLT VOLUME 7.7 fl (7.5-11.1); MONO % 7.1 % (3.8-10.2); NEUT % 56.4 % (42.8-82.8); PLATELET COUNT 273 10^3/uL (134-434); RBC 4.01 M/mm3 (4.00-5.60); RDW 13.9 % (11.9-15.9); WHITE BLOOD COUNT 4.9 K/mm3 (4.0-10.0)
[2022-11-19 11:51] LABS: CALCIUM 8.3 mg/dL (8.5-10.1)
[2022-11-19 11:52] LABS: BLOOD UREA NITROGEN 19.9 mg/dL (7-18)
[2022-11-19 11:55] LABS: CREATININE 0.7 mg/dL (0.55-1.3)
[2022-11-19 15:55] VITALS: BP 105/60; PULSE 64; TEMP 97.5
== END 2022-11-19 13:02 | disposition home or self-care (01) | DRG 177 ==
LOC: JER 15:45 → JERBED 18:57 → J5S 11-04 21:22
PROVIDERS: ADMIT Internal Medicine; ATTEND Internal Medicine
PROC: XW033E5 Introduction of Remdesivir Anti-infective into Peripheral Vein, Percutaneous Approach, New Technology Group 5 (ICD-10-PCS; principal; 2022-11-04)
PROC: 3E0333Z Introduction of Anti-inflammatory into Peripheral Vein, Percutaneous Approach (ICD-10-PCS; 2022-11-04)
DX: U07.1 COVID-19 (principal); J12.82 Pneumonia due to coronavirus disease 2019; K51.90 Ulcerative colitis, unspecified, without complications; E87.20 Acidosis, unspecified; E87.1 Hypo-osmolality and hyponatremia; N17.9 Acute kidney failure, unspecified; G40.909 Epilepsy, unspecified, not intractable, without status epilepticus; F79 Unspecified intellectual disabilities; R09.02 Hypoxemia; L95.8 Other vasculitis limited to the skin; E87.5 Hyperkalemia; R74.01 Elevation of levels of liver transaminase levels; D35.2 Benign neoplasm of pituitary gland; E86.0 Dehydration; N18.9 Chronic kidney disease, unspecified
CPT/HCPCS: 0241U-QW; 36415; 36600; 71045-TC-FY; 71046-TC-FY; 71250-TC; 76700-TC; 80048; 80053; 80076; 80164; 80177; 81003; 82570; 82803; 82962; 83605; 83735; 83935; 84100; 84156; 84300; 85025; 85027; 85610; 86140; 93005; 93010; 94761; 97116-GP; 97161-GP; 99285-25; C9399; C9803-CS; J1100; U0003; U0005